=== PATIENT | male | born 1970 | race African-American/Black ===

== ENCOUNTER 2024-12-27 08:12 | Emergency (ER) | payer MEDICAID, OTHER ==
[~2024-12-27] VITALS: Ht 180.3 cm; Wt 75.0 kg
[2024-12-27 08:23] VITALS: O2SAT 95
[2024-12-27] MEDS: LIDOCAINE HCL/EPINEPHRINE 1%-EPI 1:100,000 20ML VIAL INFIL ONE (09:17)
[2024-12-27] MEDS ORDERED: IBUP-2029 MT (09:37)
[2024-12-27] MEDS ORDERED: SULF1TAB48 MT (09:37)
[2024-12-27] MEDS ORDERED: TOPUD PO (09:37)
[2024-12-27 09:47] VITALS: BP 100/62; PULSE 84; RESP 18; TEMP 36.6; O2SAT 95
== END 2024-12-27 09:47 | disposition home or self-care (01) ==
LOC: ER 08:12
DX: L05.01 Pilonidal cyst with abscess (principal); Z79.899 Other long term (current) drug therapy; Z98.890 Other specified postprocedural states
CPT/HCPCS: 10080; 99283; J2004

== ENCOUNTER 2024-12-29 08:51 | Emergency (ER) | payer MEDICAID ==
[~2024-12-29] VITALS: Ht 180.3 cm; Wt 75.0 kg
[~2024-12-29 08:51] MED LIST: IBUP-2029 MT; SULF1TAB48 MT; TOPUD PO
[2024-12-29 09:00] VITALS: TEMP 37.1; O2SAT 98
[2024-12-29] MEDS ORDERED: DOCU100T MT (11:21)
[2024-12-29 11:57] VITALS: BP 125/58; PULSE 96; RESP 15; O2SAT 99
== END 2024-12-29 12:03 | disposition home or self-care (01) ==
LOC: ER 08:51
DX: L05.01 Pilonidal cyst with abscess (principal); Z79.899 Other long term (current) drug therapy; Z98.890 Other specified postprocedural states
CPT/HCPCS: 99282